=== PATIENT | male | born 2000 | race Caucasian/White ===

== ENCOUNTER 2018-12-19 13:47 | Emergency (ER) | payer SELFPAY ==
[~2018-12-19] VITALS: Ht 165.1 cm; Wt 65.0 kg
[~2018-12-19 13:47] MED LIST: DIPH25CA83 PO; QUET25TA PO; ZIPR20CA2 PO
--- NOTE | 2018-12-19 13:50 | NUR ---
Patient in ambulance bay awaiting room to be cleaned in OF.
[2018-12-19 14:26] VITALS: BP 122/74
[2018-12-19] MEDS ORDERED: haloperidol lactate 5mg/ml inj IM ONE (14:35)
[2018-12-19] MEDS ORDERED: diphenhydrAMINE 50 mg/ml inj IM ONE (14:35)
[2018-12-19] MEDS ORDERED: LORazepam 2 mg/ml vial IM ONE (14:35)
[2018-12-19] MEDS ORDERED: haloperidol lactate 5mg/ml inj ONE (14:36)
--- NOTE | 2018-12-19 14:50 | NUR ---
Patient brought back by [employer] and upset and anxious. marine safety officer here to assist. Continue to monitor.
--- NOTE | 2018-12-19 15:00 | NUR ---
Patient keeps yelling he is allergic to antipsychotics and sedatives. RN looked at allergies and found a DX of adverse reaction but could not find what medication. RN did not feel safe giving patient Haldol, Ativan and Benadryl. Patient appears more calm. Continue to monitor.
--- NOTE | 2018-12-19 15:00 | NUR ---
RN called [facility] because patient stated he adverse reaction to medication happened at [facility]. [facility] Records stated they would fax [facility] a form and we would need to fill it out. And they would fax the info back to us. Copy of faxed form will be in the chart. Continue to monitor.
[2018-12-19 15:02] LABS: URINE AMPHETAMINE SCREEN NEGATIVE (Neg); URINE BARBITUATE SCREEN NEGATIVE (Neg); URINE METHADONE SCREEN POSITIVE (Neg)
[2018-12-19 15:07] LABS: BASOPHILS % (AUTO) 0.9 % (0-1); EOSINOPHILS % (AUTO) 0 % (0-6); HEMATOCRIT 46.5 % (42.0-52.0); HEMOGLOBIN 16.2 g/dl (14.0-17.9); LYMPHOCYTES # (AUTO) 1.6 X10'3 (1.1-4.8); LYMPHOCYTES % (AUTO) 29.5 % (21-51); MEAN CORPUSCULAR HEMOGLOBIN 32.4 PG (27.0-31.0); MEAN CORPUSCULAR HGB CONC 34.7 g/dL (33.0-36.5); MEAN CORPUSCULAR VOLUME 93.2 FL (78-98); MEAN PLATELET VOLUME 7.2 FL (7.4-10.4); MONOCYTES # (AUTO) 0.8 X10'3 (0-0.9); MONOCYTES % (AUTO) 15.1 % (2-12); NEUTROPHILS # (AUTO) 2.9 X10'3 (1.8-7.7); NEUTROPHILS % (AUTO) 54.5 % (42-75); PLATELET COUNT 258 X10'3 (140-440); RED BLOOD COUNT 4.99 X10'6 (4.70-6.10); RED CELL DISTRIBUTION WIDTH 12.8 % (11.5-14.5); WHITE BLOOD COUNT 5.3 X10'3 (4.5-11.0)
[2018-12-19 15:21] LABS: ALANINE AMINOTRANSFERASE 48 U/L (12-78); ALBUMIN 5.1 G/DL (3.4-5.0); ALBUMIN/GLOBULIN RATIO 1.4 (1.1-1.5); ALKALINE PHOSPHATASE 95 IU/L (20-180); ANION GAP 14 (8-16); ASPARTATE AMINO TRANSFERASE 24 U/L (10-37); BILIRUBIN,TOTAL 0.4 MG/DL (0.1-1.0); BLOOD UREA NITROGEN 22 MG/DL (7-18); BUN/CREATININE RATIO 22.4 (5.4-32.0); CALCIUM 10.2 MG/DL (8.5-10.1); CHLORIDE 103 MMOL/L (99-107); CREATININE 0.98 MG/DL (0.60-1.10); GLUCOSE 116 MG/DL (70-104); POTASSIUM 3.6 MMOL/L (3.5-5.1); SODIUM 142 MMOL/L (135-145); TOTAL CARBON DIOXIDE 25.2 MMOL/L (24-32); TOTAL PROTEIN 8.8 G/DL (6.4-8.2); eGFR > 90 ML/MIN
[2018-12-19 15:29] LABS: ETHANOL < 0.010 GM/DL (0.0-0.010)
[2018-12-19 15:52] LABS: URINE BENZODIAZEPINES SCREEN NEGATIVE (Neg); URINE CANNABINOID SCREEN POSITIVE (Neg); URINE COCAINE SCREEN NEGATIVE (Neg); URINE OPIATE SCREEN NEGATIVE (Neg); URINE PHENCYCLIDINE SCREEN NEGATIVE (Neg)
--- NOTE | 2018-12-19 16:45 | NUR ---
Patient calm and RN spoke to patient 1:1 and patient is quite psychotic. Patient not making sense. RN asked if he felt like hurting himself and patient started talking about his mother who has schizophrenia. He also states his sister has schizophrenia. RN asked patient if he hears voices. Patient states yes, but that's not the problem. Patient started talking about how his dad doesn't understand he has "episodes" everyday and started rambling and didn't make sense. RN asked patient if Seroquel helped him feel better. Patient stated he would like some Seroquel. RN to ask CINDY Ramos for medication and set up Telepsych. Continue to monitor.
[2018-12-19] MEDS ORDERED: QUEtiapine 25mg tablet PO ONE (17:05)
--- NOTE | 2018-12-19 17:10 | NUR ---
Patient calm and chatting with PHILLIP Dent. Jailene gave patient some snacks. No distress observed. Continue to monitor.
--- NOTE | 2018-12-19 17:35 | NUR ---
at about 1730 PHILLIP Shannon saw patient heading for the exit and yelled for patient to stop. Amber Watkins, grabbed Security phone and advised security as June and PHILLIP Dent ran after patient. Patient ran down by Therese since security was blocking him at the desk. Security is continuing to look for patient.
== END 2018-12-19 17:30 | disposition left against medical advice (07) ==
LOC: ER 13:48 → EDBD 14:24 → ER 17:30
DX: R45.851 Suicidal ideations (principal); F22 Delusional disorders; Z79.899 Other long term (current) drug therapy
CPT/HCPCS: 36415; 80053; 80305; 80320; 84443; 85025; 99284; J1200; J2060; J1630

== ENCOUNTER 2019-01-07 11:25 | Emergency (ER) | payer MEDICAID ==
[~2019-01-07] VITALS: Ht 167.6 cm; Wt 110.0 kg
[2019-01-07 12:03] LABS: BASOPHILS % (AUTO) 0.6 % (0-1); EOSINOPHILS % (AUTO) 0.2 % (0-6); HEMATOCRIT 43.3 % (42.0-52.0); HEMOGLOBIN 14.9 g/dl (14.0-17.9); LYMPHOCYTES # (AUTO) 1.9 X10'3 (1.1-4.8); LYMPHOCYTES % (AUTO) 26.3 % (21-51); MEAN CORPUSCULAR HEMOGLOBIN 32.1 PG (27.0-31.0); MEAN CORPUSCULAR HGB CONC 34.3 g/dL (33.0-36.5); MEAN CORPUSCULAR VOLUME 93.5 FL (78-98); MEAN PLATELET VOLUME 7.8 FL (7.4-10.4); MONOCYTES # (AUTO) 0.5 X10'3 (0-0.9); MONOCYTES % (AUTO) 7.2 % (2-12); NEUTROPHILS # (AUTO) 4.6 X10'3 (1.8-7.7); NEUTROPHILS % (AUTO) 65.7 % (42-75); PLATELET COUNT 254 X10'3 (140-440); RED BLOOD COUNT 4.64 X10'6 (4.70-6.10); RED CELL DISTRIBUTION WIDTH 12.5 % (11.5-14.5); WHITE BLOOD COUNT 7.1 X10'3 (4.5-11.0)
[2019-01-07 12:16] LABS: ALANINE AMINOTRANSFERASE 24 U/L (12-78); ALBUMIN 4.6 G/DL (3.4-5.0); ALBUMIN/GLOBULIN RATIO 1.2 (1.1-1.5); ALKALINE PHOSPHATASE 87 IU/L (20-180); ANION GAP 10 (8-16); ASPARTATE AMINO TRANSFERASE 18 U/L (10-37); BILIRUBIN,TOTAL 0.4 MG/DL (0.1-1.0); BLOOD UREA NITROGEN 15 MG/DL (7-18); CALCIUM 9.5 MG/DL (8.5-10.1); CHLORIDE 105 MMOL/L (99-107); CREATININE 0.79 MG/DL (0.60-1.10); ETHANOL < 0.010 GM/DL (0.0-0.010); GLUCOSE 96 MG/DL (70-104); POTASSIUM 3.7 MMOL/L (3.5-5.1); SODIUM 141 MMOL/L (135-145); TOTAL CARBON DIOXIDE 26.2 MMOL/L (24-32); TOTAL PROTEIN 8.3 G/DL (6.4-8.2); eGFR > 90 ML/MIN
--- NOTE | 2019-01-07 12:51 | NUR ---
CONTACTED POISON CONTROL. OBSERVE AND MONITOR PATIENT FOR HEAVY SEDATION AND ONSET HYPOTENTION FOR 4-6 HOURS . SITTER OBSERVING
[2019-01-07 13:09] LABS: URINE AMPHETAMINE SCREEN NEGATIVE (Neg); URINE BARBITUATE SCREEN NEGATIVE (Neg); URINE BENZODIAZEPINES SCREEN NEGATIVE (Neg); URINE CANNABINOID SCREEN POSITIVE (Neg); URINE COCAINE SCREEN NEGATIVE (Neg); URINE METHADONE SCREEN NEGATIVE (Neg); URINE OPIATE SCREEN NEGATIVE (Neg); URINE PHENCYCLIDINE SCREEN NEGATIVE (Neg)
--- NOTE | 2019-01-07 13:30 | NUR ---
Patient resting comfortably, no needs at this time. Sitter at bedside
--- NOTE | 2019-01-07 14:36 | NUR ---
Patient resting with eyes closed. No needs at this time. Sitter at bedside.
[2019-01-07] MEDS ORDERED: QUET25TA PO (16:20)
--- NOTE | 2019-01-07 17:47 | NUR ---
PC CALLED TO CHECK ON PT. RECOMMEND ASA AND TYLENOL LEVELS
[2019-01-07 18:21] LABS: ACETAMINOPHEN < 2.0 UG/ML (10-30)
--- NOTE | 2019-01-07 19:33 | NUR ---
PT HAS 1:1 SITTER (D/T HISTORY OF ELOPMENT LAST VISIT). PT HAS BEEN SITTING UP IN THE BED AND APPROPRIATELY CONVERSING WITH THE SITTER. HE APPEARS CONTENT.
--- NOTE | 2019-01-07 20:09 | NUR ---
POISON CONTROL CALLING REQUESTING ACETAMINOPHEN AND ASA LEVELS. LEVELS WNL. UPDATED THAT PT IS ALERT X4 , HAS BEEN AWAKE ALL AFTERNOON , IS ACTING APPROPRIATE, AND UP AD FLETCHER WITH STEADY GAIT AND HAS STABLE VS. POISON CONTROL TO SIGN OFF ON PT NOW.
[2019-01-07] MEDS: quetiapine 100mg tablet PO SCH (20:40)
[2019-01-07] MEDS ORDERED: QUEtiapine 25mg tablet PO SCH (21:00)
--- NOTE | 2019-01-07 22:42 | NUR ---
PT SLEEPING, LYING ON HIS RIGHT SIDE WITH BLANKETS COVERING TO HIS SHOUDERS. 1:1 SITTER NEXT TO BED.
--- NOTE | 2019-01-08 02:39 | NUR ---
pt remains asleep. 1:1 sitter next to bed.
--- NOTE | 2019-01-08 06:30 | NUR ---
Asleep upon change of shift observation. Undisturbed at this time.
--- NOTE | 2019-01-08 08:30 | NUR ---
Patient served his breakfast tray. Picked at his food. Accepted his Geodon with reluctance. States "I'm allergic to this med." Spoke with Orlin WHITE about posssible allergy to Geodon as he spoke with patient yesterday and there is no mention of Geodon allergy in the notes. Orlin Hay states patient is not allergic to Geodon by history. Patient encouraged to take Geodon 60 mg. PO. Did so stating "I feel scared." Informed we would check on him frequently for any evidence of sidfe effects.
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
[2019-01-08] MEDS: ziprasidone 20mg capsule PO SCH (08:32)
--- NOTE | 2019-01-08 09:00 | NUR ---
Alicia from [facility] at bedside to evaluate patient for 5150 status.
--- NOTE | 2019-01-08 09:30 | NUR ---
Patient placed on a 5150.
--- NOTE | 2019-01-08 09:31 | NUR ---
Patient informed he was placed on a 5150. Jumped out of bed and attempted to run out the doors. Staff standing outside of the doors. Held the door closed. Brought the patient back to bed.
--- NOTE | 2019-01-08 10:30 | NUR ---
Patient sleeping peacefully at this time. Father called to inquire about patient.
[2019-01-08 12:03] LABS: CLARITY,URINE CLOUDY (Clear); COLOR,URINE YELLOW (Yellow); GLUCOSE, URINE NEGATIVE (Neg); KETONES,URINE NEGATIVE (Neg); LEUKOCYTE ESTERASE ,URINE NEGATIVE (Neg); NITRITES, URINE NEGATIVE (Neg); OCCULT BLOOD,URINE NEGATIVE (Neg); PROTEIN,URINE NEGATIVE (Neg); UROBILINOGEN,URINE 0.2 E.U/dL (0.2-1.0)
[2019-01-08] MEDS ORDERED: LORazepam 1 MG tablet PO ONE (12:05)
[2019-01-08 12:08] LABS: UA COLLECTION TYPE CLN CATCH MIDSTREAM
[2019-01-08 12:16] LABS: MUCUS STRANDS MODERATE /LPF (Neg); SQUAMOUS EPITHELIAL CELL,UR FEW /LPF (FEW)
[2019-01-08 12:17] LABS: AMORPHOUS PHOSPHATES 4+
[2019-01-08 12:18] LABS: BACTERIA,URINE 1+ /HPF (Neg); RBC,URINE 0-2 /HPF (0-2); WBC,URINE 0-4 /HPF (0-4)
--- NOTE | 2019-01-08 13:00 | NUR ---
Awakened for lunch meal. Patient appears to be in a panic. States "I'm feeling weird from the Geodon." Described feelings of anxiety. Dr. Gutierrez consulted. Order given for Ativan 2 mg. PO. Patient accepted this medication without difficulty. Went to sleep immediately afterwards. Did not eat his lunch.
--- NOTE | 2019-01-08 17:30 | NUR ---
Has slept for the entire afternoon. Color and breathing within normal limits. In line of sight of staff at all times.
--- NOTE | 2019-01-08 18:37 | NUR ---
received report. patient sleeping at this time. did not awaken to eat dinner. VS taken.
--- NOTE | 2019-01-08 20:16 | NUR ---
Patient up and ambulated with PCT. He is now back to bed and resting without signs of distress.
[2019-01-08] MEDS: quetiapine 100mg tablet PO SCH (20:46)
--- NOTE | 2019-01-08 21:46 | NUR ---
patient awake and having snacks. Up to the bathroom. Visiting with staff. Making jokes and offering to help out around the floor.
--- NOTE | 2019-01-08 23:13 | NUR ---
Patient still sleeping quietly. Sitter at bedside. No complaints. No needs identified.
--- NOTE | 2019-01-09 01:14 | NUR ---
patient sleeping soundly. no distress noted. RR 16 and normal.
--- NOTE | 2019-01-09 02:45 | NUR ---
patient awoke for a few minutes when another patient was brought in, but promptly went back to sleep.
--- NOTE | 2019-01-09 04:10 | NUR ---
patient ambulated to bathroom. steady gait. sitter at side.
--- NOTE | 2019-01-09 07:15 | NUR ---
Received Pt awake in bed watching staff taking report. In pleasant mood and reading a book.
[2019-01-09] MEDS: ziprasidone 20mg capsule PO SCH (08:16)
[2019-01-09] MEDS ORDERED: LORazepam 1 MG tablet PO ONE ×2 (09:40→17:25)
--- NOTE | 2019-01-09 10:19 | NUR ---
Pt in bed resting and asking for something for feeling anxious. Pt reported that he attempted to leave yesterday and did elope the last time he was in the ER. Obtained one time ativan 1mg order from and gave to pt. He is pleasant and cooperative and thankful. Answered Q's r/t in pt regulations and some planning he can do for DC that could help him.
--- NOTE | 2019-01-09 12:32 | NUR ---
Pt in bed sleeping w/o distress. Neighbor called who is taking care of his dog and would like info about how long he will be away. Negors # [phone]. Will have Pt call her upon wake up.
--- NOTE | 2019-01-09 15:39 | NUR ---
Pt out of bed stretching and asking when he is leaving. I gave him the latest information on county in-pt placement and gave him phone to call his dad. Answered Q's r/t 72 hr hold and talked with him to encourage thinking about other than just leaving. Gave him kudos for not responding to desires to leave.
--- NOTE | 2019-01-09 18:03 | NUR ---
PT AWAKE AND INTERMITENTLY OUT OF BED TO WALK AROUND. FREQUENTLY ASKING WHEN AND WHERE HE WILL BE GOING. REQUESTED ATIVAN R/T INCREASING ANXIETY. ORDER OBTAINED AND GIVEN ATIVAN 1MG AT 1733. PT HAS BEEN ACCEPTED AT [facility] AND EXPECTED DEPARTURE OF 2129.
[2019-01-09 18:39] VITALS: BP 133/104
[2019-01-09] MEDS: quetiapine 100mg tablet PO SCH (20:16)
--- NOTE | 2019-01-09 20:41 | NUR ---
[facility] Here to transport pt to [facility] in [place]. Pt given his clothing to change and belongings and original 5150 given to [facility] employee. Security called to escort pt to vehicle. Pt cooperative with transfer and ambulated out of ER overflow.
--- NOTE | 2019-01-09 21:21 | NUR ---
Spoke with Tia Gonzalez, regarding pt's request prior to dc to contact neighbor, María ([phone]) regarding his placement as she is caring for his dog. Explained pt's elopement hx and rationale to not inform him prior to [facility] tractor sweeper driver arrival about transfer, [facility] to contact neighbor after his intack process complete at their facility. Lisa indicated she would provide pt with María's number and phone access.
== END 2019-01-09 20:49 ==
LOC: ER 11:25
DX: S51.812A Laceration without foreign body of left forearm, initial encounter (principal); F29 Unspecified psychosis not due to a substance or known physiological condition; Z73.6 Limitation of activities due to disability; Z88.8 Allergy status to other drugs, medicaments and biological substances; Z79.899 Other long term (current) drug therapy; X78.8XXA Intentional self-harm by other sharp object, initial encounter; Y93.89 Activity, other specified; Y92.89 Other specified places as the place of occurrence of the external cause; Y99.8 Other external cause status
CPT/HCPCS: 36415; 80053; 80305; 80320; 80329; 81001; 84443; 85025; 93005; 99285

== ENCOUNTER 2019-01-27 14:30 | Emergency (ER) | payer MEDICAID ==
[~2019-01-27] VITALS: Ht 167.6 cm; Wt 50.2 kg
[~2019-01-27 14:30] MED LIST changes: -DIPH25CA83 PO; -ZIPR20CA2 PO
[2019-01-27 14:43] VITALS: BP 116/68
[2019-01-27] MEDS ORDERED: QUET25TA PO (15:36)
[2019-01-27] MEDS ORDERED: QUET-1 PO (15:39)
== END 2019-01-27 15:47 | disposition home or self-care (01) ==
LOC: ER 14:31
DX: F25.9 Schizoaffective disorder, unspecified (principal); Z76.0 Encounter for issue of repeat prescription; F32.9 Major depressive disorder, single episode, unspecified; Z88.8 Allergy status to other drugs, medicaments and biological substances; Z79.899 Other long term (current) drug therapy
CPT/HCPCS: 99283

== ENCOUNTER 2019-02-12 13:17 | Emergency (ER) | payer MEDICAID ==
[~2019-02-12] VITALS: Ht 167.6 cm; Wt 49.0 kg
[~2019-02-12 13:17] MED LIST changes: +QUET-1 PO
[2019-02-12 13:46] VITALS: BP 119/74
[2019-02-12] MEDS ORDERED: QUET-1 PO (14:55)
== END 2019-02-12 15:04 | disposition home or self-care (01) ==
LOC: ER 13:17
DX: F25.9 Schizoaffective disorder, unspecified (principal); F29 Unspecified psychosis not due to a substance or known physiological condition; Z76.0 Encounter for issue of repeat prescription; Z88.8 Allergy status to other drugs, medicaments and biological substances
CPT/HCPCS: 99283

== ENCOUNTER 2019-09-14 20:56 | Emergency (ER) | payer MEDICAID ==
[~2019-09-14] VITALS: Ht 167.6 cm; Wt 61.6 kg
[2019-09-14] MEDS ORDERED: IBUP-1984 PO (21:30)
[2019-09-14] MEDS ORDERED: ROBCFL PO (21:30)
--- NOTE | 2019-09-14 22:00 | NUR ---
STRONG DRY BRONCHOSPASTIC COUGH
[2019-09-14 22:04] VITALS: BP 128/71
[2019-09-15] MEDS ORDERED: BENZ-16 PO (14:11)
== END 2019-09-14 22:00 | disposition home or self-care (01) ==
LOC: ER 20:56
DX: J06.9 Acute upper respiratory infection, unspecified (principal); F20.9 Schizophrenia, unspecified; F29 Unspecified psychosis not due to a substance or known physiological condition; Z88.8 Allergy status to other drugs, medicaments and biological substances; Z79.899 Other long term (current) drug therapy
CPT/HCPCS: 99282

== ENCOUNTER 2019-09-15 13:03 | Emergency (ER) | payer MEDICAID ==
[~2019-09-15] VITALS: Ht 167.6 cm; Wt 54.5 kg
[~2019-09-15 13:03] MED LIST changes: +IBUP-1984 PO; +ROBCFL PO
[2019-09-15 13:26] VITALS: BP 119/77
[2019-09-15] MEDS ORDERED: BENZ-16 PO (14:11)
== END 2019-09-15 14:27 | disposition home or self-care (01) ==
LOC: ER 13:03
DX: J02.9 Acute pharyngitis, unspecified (principal); R05 Cough; R50.9 Fever, unspecified; F20.9 Schizophrenia, unspecified; F29 Unspecified psychosis not due to a substance or known physiological condition; Z76.0 Encounter for issue of repeat prescription; Z88.8 Allergy status to other drugs, medicaments and biological substances; Z79.899 Other long term (current) drug therapy
CPT/HCPCS: 99283

== ENCOUNTER 2020-08-30 16:18 | Emergency (ER) | payer MEDICAID ==
[~2020-08-30] VITALS: Ht 167.6 cm; Wt 68.7 kg
[~2020-08-30 16:18] MED LIST changes: -IBUP-1984 PO; -ROBCFL PO
[2020-08-30 16:23] VITALS: BP 130/82
[2020-08-30] MEDS ORDERED: QUET-1 PO (16:40)
--- NOTE | 2020-08-30 16:47 | NUR ---
PATIENT IS HERE FOR MEDICATION REQUEST. STATES HE IS UNABLE TO GET IN TO SEE HIS PRIMARY CARE MENTAL HEALTH PROVIDER UNTIL NEXT MONTH, SO HE NEEDS REFILL OF SEROQUEL.
[2020-08-30] MEDS ORDERED: QUET200T PO (17:04)
== END 2020-08-30 17:15 | disposition home or self-care (01) ==
LOC: ER 16:18
DX: F20.9 Schizophrenia, unspecified (principal); Z76.0 Encounter for issue of repeat prescription; Z88.8 Allergy status to other drugs, medicaments and biological substances; Z79.899 Other long term (current) drug therapy
CPT/HCPCS: 99281

== ENCOUNTER 2020-10-12 15:24 | Emergency (ER) | payer MEDICAID ==
[~2020-10-12] VITALS: Ht 167.6 cm; Wt 59.1 kg
[~2020-10-12 15:24] MED LIST changes: +QUET200T PO
[2020-10-12 15:27] VITALS: BP 131/78
[2020-10-12] MEDS ORDERED: QUET200T PO (15:38)
== END 2020-10-12 15:40 | disposition home or self-care (01) ==
LOC: ER 15:25
DX: F25.9 Schizoaffective disorder, unspecified (principal); Z76.0 Encounter for issue of repeat prescription
CPT/HCPCS: 99281

== ENCOUNTER 2020-11-23 19:55 | Emergency (ER) | payer MEDICAID ==
[~2020-11-23] VITALS: Ht 170.2 cm; Wt 59.6 kg
[2020-11-23 20:00] VITALS: BP 145/76
[2020-11-23] MEDS ORDERED: QUET200T PO (22:25)
== END 2020-11-23 22:47 | disposition home or self-care (01) ==
LOC: ER 19:55
DX: F25.9 Schizoaffective disorder, unspecified (principal); Z76.0 Encounter for issue of repeat prescription; F29 Unspecified psychosis not due to a substance or known physiological condition; Z88.8 Allergy status to other drugs, medicaments and biological substances; Z79.899 Other long term (current) drug therapy
CPT/HCPCS: 99281

== ENCOUNTER 2021-01-03 19:29 | Emergency (ER) | payer MEDICAID ==
[~2021-01-03] VITALS: Ht 165.1 cm; Wt 62.7 kg
[2021-01-03 19:37] VITALS: BP 131/86
--- NOTE | 2021-01-03 20:27 | NUR ---
PT SEEN AND DC'D BY PROVIDER
== END 2021-01-03 20:29 | disposition home or self-care (01) ==
LOC: ER 19:30
DX: J02.9 Acute pharyngitis, unspecified (principal); R23.8 Other skin changes; Z11.3 Encounter for screening for infections with a predominantly sexual mode of transmission; Z88.8 Allergy status to other drugs, medicaments and biological substances; Z79.899 Other long term (current) drug therapy; Z86.19 Personal history of other infectious and parasitic diseases
CPT/HCPCS: 99281

== ENCOUNTER 2021-01-26 06:41 | Emergency (ER) | payer MEDICAID ==
[~2021-01-26] VITALS: Ht 162.6 cm; Wt 63.6 kg
[2021-01-26 06:44] VITALS: BP 156/88
== END 2021-01-26 07:12 | disposition home or self-care (01) ==
LOC: ER 06:42
DX: K08.89 Other specified disorders of teeth and supporting structures (principal); R11.10 Vomiting, unspecified; F20.9 Schizophrenia, unspecified; Z88.8 Allergy status to other drugs, medicaments and biological substances; Z79.899 Other long term (current) drug therapy
CPT/HCPCS: 99282

== ENCOUNTER 2023-09-18 20:46 | Emergency (ER) | payer MEDICAID ==
[~2023-09-18] VITALS: Ht 160 cm; Wt 70.0 kg
[2023-09-18 21:01] VITALS: BP 146/91; PULSE 89; RESP 16; TEMP 98.4; O2SAT 98
[2023-09-18 21:07] LABS: BASOPHILS % (AUTO) 0.4 % (0-1); EOSINOPHILS # (AUTO) 0.1 X10'3 (0-0.9); EOSINOPHILS % (AUTO) 0.8 % (0-6); HEMATOCRIT 43.1 % (42.0-52.0); HEMOGLOBIN 14.8 g/dl (14.0-17.9); LYMPHOCYTES # (AUTO) 1.7 X10'3 (1.1-4.8); LYMPHOCYTES % (AUTO) 23.8 % (21-51); MEAN CORPUSCULAR HGB CONC 34.4 g/dL (33.0-36.5); MEAN CORPUSCULAR VOLUME 90.1 FL (78-98); MEAN PLATELET VOLUME 6.9 FL (7.4-10.4); MONOCYTES # (AUTO) 0.7 X10'3 (0-0.9); MONOCYTES % (AUTO) 9.5 % (2-12); NEUTROPHILS # (AUTO) 4.6 X10'3 (1.8-7.7); NEUTROPHILS % (AUTO) 65.5 % (42-75); PLATELET COUNT 259 X10'3 (140-440); RED BLOOD COUNT 4.79 X10'6 (4.70-6.10); RED CELL DISTRIBUTION WIDTH 12.5 % (11.5-14.5)
[2023-09-18 21:17] LABS: ALANINE AMINOTRANSFERASE 80 U/L (12-78); ALBUMIN 4.6 G/DL (3.4-5.0); ALBUMIN/GLOBULIN RATIO 1.2 (1.1-1.5); ALKALINE PHOSPHATASE 90 IU/L (46-116); ANION GAP 8 (8-16); ASPARTATE AMINO TRANSFERASE 29 U/L (10-37); BILIRUBIN,TOTAL 0.6 MG/DL (0.1-1.0); BLOOD UREA NITROGEN 14 MG/DL (7-18); BUN/CREATININE RATIO 16.9 (10.0-20.0); CALCIUM 9.3 MG/DL (8.5-10.1); CHLORIDE 102 MMOL/L (99-107); CREATININE 0.83 MG/DL (0.60-1.10); GLUCOSE 89 MG/DL (70-104); POTASSIUM 3.9 MMOL/L (3.5-5.1); SODIUM 139 MMOL/L (135-145); TOTAL CARBON DIOXIDE 28.8 MMOL/L (24-32); TOTAL PROTEIN 8.5 G/DL (6.4-8.2); eCRCL 110 ML/MIN; eGFR > 90 ML/MIN
[2023-09-18 21:25] LABS: PRO BRAIN NATRIURETIC PEPTIDE < 30 PG/ML (0-125)
== END 2023-09-18 22:04 | disposition home or self-care (01) ==
LOC: ER 20:47
DX: F41.9 Anxiety disorder, unspecified (principal); F20.9 Schizophrenia, unspecified; F15.10 Other stimulant abuse, uncomplicated; Z88.8 Allergy status to other drugs, medicaments and biological substances; Z79.899 Other long term (current) drug therapy
CPT/HCPCS: 36415; 80053; 83880; 84484; 85025; 93005; 99284